=== PATIENT | male | born 1945 | race Caucasian/White ===

== ENCOUNTER → 2016-04-06 | Outpatient (CLI) | payer MEDICARE, BC ==
[~2016-04-06] MED LIST: ASPIRIN81 MG PO; HYDROXYZINE HCL25 MG PO; LANTUS100 UNIT/1 SQ; LIPITOR TAB 1010 MG PO; METOPROLOL TART25 MG PO; PRILOSEC OTC20 MG PO; TRIAMCINOLONE A15 G1 TP; TYLENOL 500 MG500 MG PO; VITAMIN D5000 UNIT PO; ZOLOFT50 MG PO
== END ==
LOC: NM 08:15 → ECHO 12:30 → HEART 5 04-11 08:30
DX: I25.10 Atherosclerotic heart disease of native coronary artery without angina pectoris (principal); I10 Essential (primary) hypertension
CPT/HCPCS: ECHO; 78452; 93306; A9502

== ENCOUNTER → 2020-04-12 | Outpatient (CLI) | payer MEDICARE, BC ==
[~2020-04-12] MED LIST changes: +ALBUTEROL1.25 MG/3 INH; +CLOPIDOGREL75 MG PO; +FERROUS SULFAT325 M2 PO; +FLAGYL500 MG PO; +IMDUR ER TAB 3030 MG PO; +IVIG IV; +LASIX40 MG PO; +LOPRESSOR 25 MG25 MG PO; +LOPRESSOR 50 MG50 MG PO; +MEDROL DOSEPAK 24 MG PO; +NEBULIZER UNIT; +PANTOPRAZOLE SO40 MG PO; +PREDNISONE20 MG PO; +PROVENTIL HFA6.7 GM INH; +TREANDA INJ; +TRESIBA100 UNIT/1 SQ; +VENTOLIN HFA 66.7 GM INH; +VIBRAMYCIN100 MG PO; +VITAMIN C 250250 MG PO; +VITAMIN D-40400 UNIT PO; +ZITHROMAX250 MG PO
== END ==
LOC: EXRD 09:01
DX: N18.9 Chronic kidney disease, unspecified (principal)
CPT/HCPCS: 76775

== ENCOUNTER → 2020-07-12 | Outpatient (CLI) | payer MEDICARE, BC ==
[2020-07-12 11:28] LABS: HEMOGLOBIN 14.5 gm/dl (14.0-17.5); RED BLOOD COUNT 4.18 M/UL (4.20-5.50); WHITE BLOOD COUNT 8.1 K/UL (4.5-11.0)
[2020-07-12 11:37] LABS: BUN/CREATININE RATIO 12 (0-10)
== END ==
LOC: CT 10:46
PROVIDERS: Internal Medicine Hematology & Oncology
DX: C85.88 Other specified types of non-Hodgkin lymphoma, lymph nodes of multiple sites (principal); D81.89 Other combined immunodeficiencies; R91.1 Solitary pulmonary nodule; R91.8 Other nonspecific abnormal finding of lung field
CPT/HCPCS: 36415; 71260; 80053; 85027; Q9963

== ENCOUNTER → 2020-12-27 | Outpatient (CLI) | payer MEDICARE, BC | LOC: CT 10:30 | DX: C85.88 Other specified types of non-Hodgkin lymphoma, lymph nodes of multiple sites (principal); D81.89 Other combined immunodeficiencies; R91.8 Other nonspecific abnormal finding of lung field | CPT/HCPCS: 36415; 71260; 82565; Q9967 ==

== ENCOUNTER → 2021-07-18 | Outpatient (CLI) | payer MEDICARE, BC ==
[2021-07-18 11:58] LABS: RED BLOOD COUNT 4.33 M/UL (4.20-5.50); WHITE BLOOD COUNT 7.4 K/UL (4.5-11.0)
== END ==
LOC: CT 07-15 13:00
PROVIDERS: Internal Medicine Hematology & Oncology
DX: C85.88 Other specified types of non-Hodgkin lymphoma, lymph nodes of multiple sites (principal); D81.89 Other combined immunodeficiencies; D81.9 Combined immunodeficiency, unspecified; R91.8 Other nonspecific abnormal finding of lung field
CPT/HCPCS: 36415; 71260; 80053; 83615; 85025; Q9967